=== PATIENT | female | born 1945 | race Two or more races ===

== ENCOUNTER 2020-07-21 06:45 | Day surgery (SDC) | payer OTHER | END 2020-07-21 11:00 | disposition home or self-care (01) | LOC: CIR.AMB 06:45 | PROVIDERS: ATTEND Colon & Rectal Surgery | DX: D12.0 Benign neoplasm of cecum (principal); D12.2 Benign neoplasm of ascending colon; D12.3 Benign neoplasm of transverse colon; Z20.828 Contact with and (suspected) exposure to other viral communicable diseases; K64.8 Other hemorrhoids ==

== ENCOUNTER 2024-08-13 09:36 | Day surgery (SDC) | payer OTHER ==
[2024-08-13] MEDS ORDERED: MIDAZOLAM HCL 2 MG/2 ML VIAL IV ONE (15:00)
[2024-08-13] MEDS ORDERED: ONDANSETRON HCL 2 MG/ML VIAL IV ONE (15:00)
[2024-08-13] MEDS ORDERED: fentaNYL CITRATE 50 MCG/ML AMPUL IV PUSH ONE (15:00)
[2024-08-13] MEDS ORDERED: DIPHENHYDRAMINE HCL 50 MG/ML VIAL 1ML IV ONE (15:00)
== END 2024-08-13 17:15 | disposition home or self-care (01) ==
LOC: AMB-ENDOS 09:36
PROVIDERS: ATTEND Colon & Rectal Surgery
DX: D12.1 Benign neoplasm of appendix (principal); D12.0 Benign neoplasm of cecum; D12.5 Benign neoplasm of sigmoid colon

== ENCOUNTER 2024-09-25 09:30 | Inpatient (IN) | payer OTHER ==
[~2024-09-25] VITALS: Ht 160 cm; Wt 72.6 kg
[2024-09-25 10:41] LABS: HEMATOCRIT 48.8 % (36.0-45.00); HEMOGLOBIN 16.8 g/dL (12.0-15.00); MEAN CELL VOLUME 85.7 fL (80.00-100.00); MEAN CORPUSCULAR HEMOGLOBIN 29.6 pg (27.00-32.0); MEAN CORPUSCULAR HGB CONC 34.5 g/dl (32.0-36.0); PLATELET COUNT 286 K/uL (150-450); RED BLOOD COUNT 5.69 M/uL (4.00-6.00); RED CELL DISTRIBUTION WIDTH 13.9 % (11.5-14.5)
[2024-09-25 10:58] LABS: PH,URINE 5.5 (5.0-8.0); URINE APPEARANCE Clear; URINE BILIRRUBIN Negative (NEGATIVE); URINE BLOOD Trace; URINE COLOR Yellow; URINE GLUCOSE Negative (NEGATIVE); URINE KETONE Negative (NEGATIVE); URINE LEUKOCYTE Small; URINE NITRATE Negative; URINE PROTEIN Negative (NEGATIVE); URINE UROBILINOGEN 0.2 E.U./dl
[2024-09-25 11:02] LABS: URINE BACTERIA 36.7 uL (0.0-1933); URINE EPITHELIAL CELLS 7.2 uL (0.0-38.8); URINE RBC 8.5 uL (0.0-20.8); URINE WBC 36.8 uL (0.0-23.2)
[2024-09-25] MEDS ORDERED: ATACAND32 MG PO (11:07)
[2024-09-25] MEDS ORDERED: AMLODIPINE BESY10 MG (11:07)
[2024-09-25 11:10] LABS: URINE CAST 0.14 uL (0.0-1.40)
[2024-09-25 11:11] VITALS: BP 144/81
[2024-09-25 11:22] LABS: PARTIAL THROMBOPLASTIN TIME 31.1 SECONDS (22.0-34.0); PROTHROMBIN TIME 10.9 SECONDS (9.0-11.5)
[2024-09-25 12:16] LABS: ALBUMIN 3.9 gm/dL (3.4-5.0); BILIRUBIN TOTAL 0.72 mg/dL (0.3-1.2); CALCIUM 9.7 mg/dL (8.5-10.1); CREATININE SERUM 0.82 mg/dL (0.55-1.02); GFR 67.6; GLOBULINA 4.1 G/DL (2.4-3.5); POTASSIUM 4.85 mEq/L (3.5-5.1)
[2024-09-26 13:35] LABS: RH NEGATIVE
[2024-09-29] MEDS ORDERED: CEFTRIAXONE SODIUM 2,000 MG VIAL IV ONE (13:15)
[2024-09-29] MEDS ORDERED: METRONIDAZOLE/SODIUM CHLORIDE 500 MG/100 ML PIGGYBACK IV ONE (13:15)
[2024-09-29] MEDS ORDERED: LIDOCAINE HCL 1%/EPINEPHRINE 20ML VIAL IJ ONE (13:15)
[2024-09-29] MEDS ORDERED: BUPIVACAINE HCL 30 ML VIAL IJ ONE (13:15)
[2024-09-29] MEDS ORDERED: MORPHINE SULFATE 4 MG/ML CARTRIDGE IV PRN (15:15)
[2024-09-29] MEDS ORDERED: RINGERS SOLUTION,LACTATED 1,000 ML IV SCH (15:15)
[2024-09-29] MEDS ORDERED: ENALAPRILAT DIHYDRATE 1.25 MG/ML VIAL IV PRN (15:15)
[2024-09-29] MEDS ORDERED: ONDANSETRON HCL 2 MG/ML VIAL IV PRN (15:15)
[2024-09-29] MEDS ORDERED: OxyCODONE HCL 5 MG TABLET (ROXICODONE) PO PRN (15:15)
[2024-09-29] MEDS ORDERED: SUGAMMADEX SODIUM 200 MG/2 ML VIAL IV ONE (16:30)
[2024-09-29] MEDS ORDERED: MORPHINE SULFATE 4 MG/ML VIAL IV ONE ×2 (16:30→17:00)
[2024-09-29] MEDS ORDERED: POLYETHYLENE GLYCOL 3350 17 GM BLIST.PACK PO SCH (17:00)
[2024-09-29] MEDS ORDERED: SIMETHICONE 125 MG CAPSULE PO SCH (17:00)
[2024-09-29] MEDS ORDERED: ACETAMINOPHEN 500 MG GEL..CAP PO SCH (18:00)
[2024-09-29 18:19] LABS: HEMATOCRIT 46.2 % (36.0-45.00); HEMOGLOBIN 15.5 g/dL (12.0-15.00); MEAN CELL VOLUME 87.9 fL (80.00-100.00); MEAN CORPUSCULAR HEMOGLOBIN 29.4 pg (27.00-32.0); MEAN CORPUSCULAR HGB CONC 33.5 g/dl (32.0-36.0); PLATELET COUNT 286 K/uL (150-450); RED BLOOD COUNT 5.26 M/uL (4.00-6.00); RED CELL DISTRIBUTION WIDTH 13.6 % (11.5-14.5)
[2024-09-29 18:45] LABS: ALBUMIN 3.3 gm/dL (3.4-5.0); CALCIUM 8.3 mg/dL (8.5-10.1); CREATININE SERUM 0.91 mg/dL (0.55-1.02); GFR 59.94; MAGNESIUM 1.9 mg/dL (1.8-2.4); PHOSPHOROUS 2.5 mg/dL (2.5-4.9); POTASSIUM 3.61 mEq/L (3.5-5.1)
[2024-09-29 20:00] VITALS: BP 146/76; O2SAT 93
[2024-09-29] MEDS ORDERED: FAMOTIDINE/PF 20 MG/2 ML VIAL IV SCH (21:00)
[2024-09-30 01:08] VITALS: BP 132/77; O2SAT 97
[2024-09-30 07:00] LABS: HEMATOCRIT 45.9 % (36.0-45.00); HEMOGLOBIN 15.6 g/dL (12.0-15.00); MEAN CELL VOLUME 86.1 fL (80.00-100.00); MEAN CORPUSCULAR HEMOGLOBIN 29.3 pg (27.00-32.0); PLATELET COUNT 294 K/uL (150-450); RED BLOOD COUNT 5.34 M/uL (4.00-6.00); RED CELL DISTRIBUTION WIDTH 13.4 % (11.5-14.5)
[2024-09-30 07:38] LABS: ALBUMIN 3.3 gm/dL (3.4-5.0); CALCIUM 8.4 mg/dL (8.5-10.1); CREATININE SERUM 0.79 mg/dL (0.55-1.02); GFR 70.57; PHOSPHOROUS 3.3 mg/dL (2.5-4.9); POTASSIUM 4.79 mEq/L (3.5-5.1)
[2024-09-30 08:00] VITALS: BP 122/57; O2SAT 95
[2024-09-30] MEDS ORDERED: AMLODIPINE BESYLATE 10 MG TABLET PO SCH (09:00)
[2024-09-30] MEDS ORDERED: CANDESARTAN CILEXETIL 32 MG TABLET PO SCH (09:00)
[2024-09-30] MEDS ORDERED: LACTOBACILLUS ACIDOPHILUS 1 CAP CAP PO SCH (09:00)
[2024-09-30 16:00] VITALS: BP 143/76; O2SAT 94
[2024-09-30] MEDS ORDERED: ENOXAPARIN SODIUM 40 MG/0.4 ML SYRINGE SUBCUTANEO SCH (17:00)
[2024-10-01 00:35] VITALS: BP 126/72; O2SAT 96
[2024-10-01 07:16] LABS: HEMATOCRIT 45.3 % (36.0-45.00); HEMOGLOBIN 15.7 g/dL (12.0-15.00); MEAN CORPUSCULAR HEMOGLOBIN 29.8 pg (27.00-32.0); MEAN CORPUSCULAR HGB CONC 34.7 g/dl (32.0-36.0); PLATELET COUNT 268 K/uL (150-450); RED BLOOD COUNT 5.27 M/uL (4.00-6.00); RED CELL DISTRIBUTION WIDTH 13.5 % (11.5-14.5)
[2024-10-01 08:00] VITALS: BP 160/85; O2SAT 95
[2024-10-01 08:41] LABS: ALBUMIN 3.1 gm/dL (3.4-5.0); CALCIUM 8.7 mg/dL (8.5-10.1); CREATININE SERUM 0.75 mg/dL (0.55-1.02); GFR 74.93; MAGNESIUM 2.2 mg/dL (1.8-2.4); POTASSIUM 4.34 mEq/L (3.5-5.1)
[2024-10-01] MEDS ORDERED: NAPH,MB-DB/K PH,MBDB 1 PKT PACKET PO SCH (09:00)
[2024-10-01 09:32] LABS: PHOSPHOROUS 1.7 mg/dL (2.5-4.9)
[2024-10-01] MEDS ORDERED: POTASSIUM PHOS,M-BASIC-D-BASIC 15 MM in 0.9 % SODIUM CHLORIDE 250 ML IV NR (11:00)
[2024-10-01 16:29] VITALS: BP 143/83; O2SAT 94
[2024-10-01] MEDS ORDERED: DOCUSATE SODIUM 100MG CAP PO NR (18:00)
[2024-10-02 01:08] VITALS: BP 114/67; O2SAT 95
[2024-10-02 07:49] LABS: HEMATOCRIT 46.8 % (36.0-45.00); HEMOGLOBIN 15.7 g/dL (12.0-15.00); MEAN CELL VOLUME 87.6 fL (80.00-100.00); MEAN CORPUSCULAR HEMOGLOBIN 29.3 pg (27.00-32.0); MEAN CORPUSCULAR HGB CONC 33.4 g/dl (32.0-36.0); PLATELET COUNT 298 K/uL (150-450); RED BLOOD COUNT 5.34 M/uL (4.00-6.00); RED CELL DISTRIBUTION WIDTH 13.5 % (11.5-14.5)
[2024-10-02 08:00] VITALS: BP 147/76; O2SAT 92
[2024-10-02 08:43] LABS: CALCIUM 8.9 mg/dL (8.5-10.1); CREATININE SERUM 0.82 mg/dL (0.55-1.02); GFR 67.6; MAGNESIUM 2.1 mg/dL (1.8-2.4); PHOSPHOROUS 2.9 mg/dL (2.5-4.9); POTASSIUM 4.81 mEq/L (3.5-5.1)
[2024-10-02] MEDS ORDERED: POLYETHYLENE GLYCOL 3350 17 GM BLIST.PACK PO SCH (09:00)
[2024-10-02] MEDS ORDERED: DOCUSATE SODIUM 100MG CAP PO NR (13:00)
[2024-10-02] MEDS ORDERED: NAPH,MB-DB/K PH,MBDB 1 PKT PACKET PO NR (13:00)
[2024-10-02] MEDS ORDERED: POLYETHYLENE GLYCOL 3350 17 GM BLIST.PACK PO NR (13:00)
[2024-10-02 16:00] VITALS: BP 145/67; O2SAT 94
[2024-10-02] MEDS ORDERED: 0.9 % SODIUM CHLORIDE 1,000 ML IV SCH (20:45)
[2024-10-03 01:21] VITALS: BP 126/7; O2SAT 93
[2024-10-03] MEDS ORDERED: DIATRIZOATE MEGLUMINE, SODIUM 30 ML BOTTLE PO NR (07:00)
[2024-10-03 08:00] VITALS: BP 139/78; O2SAT 95
[2024-10-03] MEDS ORDERED: PIPERACILLIN/TAZOBACTAM SODIUM 3.375 GM VIAL IV STA (09:44)
[2024-10-03 16:00] VITALS: BP 127/76; O2SAT 93
[2024-10-03] MEDS ORDERED: PIPERACILLIN/TAZOBACTAM SODIUM 3.375 GM VIAL IV SCH (18:00)
[2024-10-04 01:44] VITALS: BP 138/73; O2SAT 98
[2024-10-04 07:57] LABS: ALBUMIN 2.6 gm/dL (3.4-5.0); CALCIUM 8.3 mg/dL (8.5-10.1); CREATININE SERUM 0.98 mg/dL (0.55-1.02); GFR 55.03; MAGNESIUM 2.3 mg/dL (1.8-2.4); PHOSPHOROUS 4.3 mg/dL (2.5-4.9); POTASSIUM 4.79 mEq/L (3.5-5.1)
[2024-10-04 08:16] LABS: HEMATOCRIT 41.1 % (36.0-45.00); HEMOGLOBIN 14.2 g/dL (12.0-15.00); MEAN CELL VOLUME 86.2 fL (80.00-100.00); MEAN CORPUSCULAR HEMOGLOBIN 29.7 pg (27.00-32.0); MEAN CORPUSCULAR HGB CONC 34.5 g/dl (32.0-36.0); PLATELET COUNT 334 K/uL (150-450); RED BLOOD COUNT 4.77 M/uL (4.00-6.00); RED CELL DISTRIBUTION WIDTH 13.9 % (11.5-14.5)
[2024-10-04 09:31] VITALS: BP 123/75; O2SAT 94
[2024-10-04 16:00] VITALS: BP 156/73; O2SAT 95
[2024-10-05 00:35] VITALS: BP 118/67; O2SAT 95
[2024-10-05 07:37] LABS: ALBUMIN 2.6 gm/dL (3.4-5.0); CALCIUM 7.8 mg/dL (8.5-10.1); CREATININE SERUM 0.74 mg/dL (0.55-1.02); GFR 76.1; MAGNESIUM 2.1 mg/dL (1.8-2.4); POTASSIUM 4.1 mEq/L (3.5-5.1)
[2024-10-05 07:46] LABS: HEMATOCRIT 38.9 % (36.0-45.00); MEAN CORPUSCULAR HEMOGLOBIN 29.5 pg (27.00-32.0); MEAN CORPUSCULAR HGB CONC 33.5 g/dl (32.0-36.0); PLATELET COUNT 287 K/uL (150-450); RED BLOOD COUNT 4.43 M/uL (4.00-6.00); RED CELL DISTRIBUTION WIDTH 13.6 % (11.5-14.5)
[2024-10-05 08:00] VITALS: BP 118/72; O2SAT 92
[2024-10-05 08:35] LABS: URINE APPEARANCE Clear; URINE BILIRRUBIN Negative (NEGATIVE); URINE BLOOD Negative; URINE COLOR Yellow; URINE GLUCOSE Negative (NEGATIVE); URINE KETONE Trace (NEGATIVE); URINE LEUKOCYTE Negative; URINE NITRATE Negative; URINE PROTEIN Negative (NEGATIVE)
[2024-10-05 08:39] LABS: URINE BACTERIA 6.1 uL (0.0-1933); URINE EPITHELIAL CELLS 5.8 uL (0.0-38.8); URINE RBC 16.9 uL (0.0-20.8); URINE WBC 5.6 uL (0.0-23.2)
[2024-10-05] MEDS ORDERED: ACETAMINOPHEN 500 MG GEL..CAP PO PRN (09:22)
[2024-10-05] MEDS ORDERED: POTASSIUM PHOS,M-BASIC-D-BASIC 18 MM in 0.9 % SODIUM CHLORIDE 250 ML IV NR (12:00)
[2024-10-05 16:00] VITALS: BP 121/74; O2SAT 93
[2024-10-05 17:15] LABS: FECAL LEUKOCYTES POSITIVE (NEGATIVE)
[2024-10-06 00:38] VITALS: BP 120/68; O2SAT 90
[2024-10-06 08:00] VITALS: BP 125/75; O2SAT 97
[2024-10-06] MEDS ORDERED: DIATRIZOATE MEGLUMINE, SODIUM 30 ML BOTTLE PO STA (09:31)
[2024-10-06] MEDS ORDERED: AMINO ACIDS 4.25 %/DEXTROSE 5% 1,000 ML PERIFERAL SCH (17:00)
[2024-10-06 17:01] LABS: CALCIUM 8.4 mg/dL (8.5-10.1); CHOL HDL RATIO 3.9 (0-5.0); CREATININE SERUM 0.7 mg/dL (0.55-1.02); GFR 81.14; POTASSIUM 4.17 mEq/L (3.5-5.1)
[2024-10-06 17:48] VITALS: BP 147/82; O2SAT 94
[2024-10-07 00:25] VITALS: BP 155/80; O2SAT 95
[2024-10-07 08:55] LABS: HEMOGLOBIN 13.8 g/dL (12.0-15.00); MEAN CELL VOLUME 88.5 fL (80.00-100.00); MEAN CORPUSCULAR HEMOGLOBIN 29.9 pg (27.00-32.0); MEAN CORPUSCULAR HGB CONC 33.7 g/dl (32.0-36.0); PLATELET COUNT 309 K/uL (150-450); RED BLOOD COUNT 4.63 M/uL (4.00-6.00); RED CELL DISTRIBUTION WIDTH 13.8 % (11.5-14.5)
[2024-10-07 10:05] LABS: ALBUMIN 2.8 gm/dL (3.4-5.0); CALCIUM 8.2 mg/dL (8.5-10.1); CREATININE SERUM 0.62 mg/dL (0.55-1.02); GFR 93.34; MAGNESIUM 2.4 mg/dL (1.8-2.4); POTASSIUM 3.91 mEq/L (3.5-5.1)
[2024-10-07 10:13] LABS: PHOSPHOROUS 1.8 mg/dL (2.5-4.9)
[2024-10-07 10:50] VITALS: BP 143/72; O2SAT 95
[2024-10-07 16:00] VITALS: BP 158/85; O2SAT 94
[2024-10-08] VITALS: BP 148/77; O2SAT 96
[2024-10-08 10:36] VITALS: BP 154/79; O2SAT 96
[2024-10-08] MEDS ORDERED: POTASSIUM PHOS,M-BASIC-D-BASIC 15 MM in 0.9 % SODIUM CHLORIDE 250 ML IV NR (12:15)
[2024-10-08 17:25] VITALS: BP 134/81; O2SAT 94
[2024-10-09 01:31] VITALS: BP 142/76; O2SAT 95
[2024-10-09 06:55] LABS: HEMATOCRIT 39.9 % (36.0-45.00); HEMOGLOBIN 13.6 g/dL (12.0-15.00); MEAN CELL VOLUME 87.4 fL (80.00-100.00); MEAN CORPUSCULAR HEMOGLOBIN 29.7 pg (27.00-32.0); PLATELET COUNT 338 K/uL (150-450); RED BLOOD COUNT 4.56 M/uL (4.00-6.00); RED CELL DISTRIBUTION WIDTH 13.2 % (11.5-14.5)
[2024-10-09 07:08] LABS: ALBUMIN 2.8 gm/dL (3.4-5.0); CALCIUM 8.2 mg/dL (8.5-10.1); CREATININE SERUM 0.6 mg/dL (0.55-1.02); GFR 96.94; MAGNESIUM 2.3 mg/dL (1.8-2.4); PHOSPHOROUS 2.1 mg/dL (2.5-4.9); POTASSIUM 3.97 mEq/L (3.5-5.1)
[2024-10-09 10:31] VITALS: BP 126/71; O2SAT 98
[2024-10-09 16:00] VITALS: BP 129/76; O2SAT 95
[2024-10-10] VITALS: BP 133/77; O2SAT 94
[2024-10-10 08:00] VITALS: BP 137/76; O2SAT 94
[2024-10-10 17:39] VITALS: BP 119/71; O2SAT 95
[2024-10-11 00:50] VITALS: BP 129/68; O2SAT 95
[2024-10-11 08:00] VITALS: BP 126/75; O2SAT 95
[2024-10-11 08:07] LABS: HEMATOCRIT 40.5 % (36.0-45.00); HEMOGLOBIN 13.9 g/dL (12.0-15.00); MEAN CELL VOLUME 87.5 fL (80.00-100.00); MEAN CORPUSCULAR HGB CONC 34.3 g/dl (32.0-36.0); PLATELET COUNT 393 K/uL (150-450); RED BLOOD COUNT 4.63 M/uL (4.00-6.00); RED CELL DISTRIBUTION WIDTH 13.7 % (11.5-14.5)
[2024-10-11 08:25] LABS: CALCIUM 8.8 mg/dL (8.5-10.1); CREATININE SERUM 0.72 mg/dL (0.55-1.02); GFR 78.54; PHOSPHOROUS 2.2 mg/dL (2.5-4.9); POTASSIUM 4.08 mEq/L (3.5-5.1)
[2024-10-11] MEDS ORDERED: POTASSIUM PHOS,M-BASIC-D-BASIC 3 MM/ML VIAL IV ONE (12:00)
[2024-10-11 16:13] VITALS: BP 132/74; O2SAT 97
[2024-10-11] MEDS ORDERED: DIATRIZOATE MEGLUMINE, SODIUM 30 ML BOTTLE PO NR (17:00)
[2024-10-12 01:35] VITALS: BP 130/74; O2SAT 95
[2024-10-12 16:29] VITALS: BP 124/70; O2SAT 94
[2024-10-12] MEDS ORDERED: ENOXAPARIN SODIUM 40 MG/0.4 ML SYRINGE SUBCUTANEO SCH (17:00)
[2024-10-13] VITALS: BP 132/68; O2SAT 93
[2024-10-13 07:41] LABS: HEMATOCRIT 39.5 % (36.0-45.00); HEMOGLOBIN 13.2 g/dL (12.0-15.00); MEAN CELL VOLUME 87.6 fL (80.00-100.00); MEAN CORPUSCULAR HEMOGLOBIN 29.2 pg (27.00-32.0); MEAN CORPUSCULAR HGB CONC 33.4 g/dl (32.0-36.0); PLATELET COUNT 404 K/uL (150-450); RED BLOOD COUNT 4.51 M/uL (4.00-6.00); RED CELL DISTRIBUTION WIDTH 13.7 % (11.5-14.5)
[2024-10-13 08:13] LABS: INR 1.05; PROTHROMBIN TIME 11.4 SECONDS (9.0-11.5)
[2024-10-13 08:15] LABS: CALCIUM 8.8 mg/dL (8.5-10.1); CREATININE SERUM 0.65 mg/dL (0.55-1.02); GFR 88.38; MAGNESIUM 2.2 mg/dL (1.8-2.4); PHOSPHOROUS 2.4 mg/dL (2.5-4.9); POTASSIUM 3.92 mEq/L (3.5-5.1)
[2024-10-13 08:20] VITALS: BP 136/66; O2SAT 94
[2024-10-13 08:33] LABS: ALBUMIN 2.9 gm/dL (3.4-5.0); BILIRUBIN TOTAL 0.62 mg/dL (0.3-1.2); BILIRUBIN,CONJUGATED 0.15 mg/dL (0.0-0.2); BILIRUBIN,UNCONJUGATED 0.47 mg/dL (0.0-0.6); CALCIUM 8.8 mg/dL (8.5-10.1); CHOL HDL RATIO 3.8 (0-5.0); CREATININE SERUM 0.64 mg/dL (0.55-1.02); GFR 89.98; GLOBULINA 3.6 G/DL (2.4-3.5); POTASSIUM 4.15 mEq/L (3.5-5.1); TOTAL PROTEIN 6.5 gm/dL (6.4-8.2)
[2024-10-13 09:17] LABS: UREA CLEARANCE 20.8 ML/MIN
[2024-10-13] MEDS ORDERED: POTASSIUM PHOS,M-BASIC-D-BASIC 15 MM in 0.9 % SODIUM CHLORIDE 250 ML IV NR ×2 (13:00→17:00)
[2024-10-13 17:06] VITALS: BP 122/67; O2SAT 95
[2024-10-14] VITALS: BP 97/54; O2SAT 90
[2024-10-14 08:00] VITALS: BP 124/75; O2SAT 97
[2024-10-14 17:30] VITALS: BP 117/65; O2SAT 93
[2024-10-15 00:28] VITALS: BP 118/65; O2SAT 93
[2024-10-15 06:19] LABS: HEMATOCRIT 38.3 % (36.0-45.00); MEAN CELL VOLUME 86.7 fL (80.00-100.00); MEAN CORPUSCULAR HEMOGLOBIN 29.4 pg (27.00-32.0); MEAN CORPUSCULAR HGB CONC 33.9 g/dl (32.0-36.0); PLATELET COUNT 369 K/uL (150-450); RED BLOOD COUNT 4.41 M/uL (4.00-6.00); RED CELL DISTRIBUTION WIDTH 13.8 % (11.5-14.5)
[2024-10-15 06:52] LABS: CALCIUM 8.1 mg/dL (8.5-10.1); CREATININE SERUM 0.59 mg/dL (0.55-1.02); GFR 98.83; MAGNESIUM 1.8 mg/dL (1.8-2.4); PHOSPHOROUS 2.5 mg/dL (2.5-4.9); POTASSIUM 3.83 mEq/L (3.5-5.1)
[2024-10-15 08:02] VITALS: BP 129/71; O2SAT 95
[2024-10-15 17:00] VITALS: BP 123/72; O2SAT 98
[2024-10-16 00:59] VITALS: BP 107/60; O2SAT 98
[2024-10-16 11:26] VITALS: BP 117/71; O2SAT 95
[2024-10-16] MEDS ORDERED: OxyCODONE HCL 5 MG TABLET (ROXICODONE) PO PRN (12:17)
[2024-10-16] MEDS ORDERED: MAGNESIUM SULFATE IN WATER 2 GM/50 ML PIGGYBAG IV NR (14:00)
[2024-10-16 16:00] VITALS: BP 136/80; O2SAT 95
[2024-10-16] MEDS ORDERED: POTASSIUM PHOS,M-BASIC-D-BASIC 15 MM in 0.9 % SODIUM CHLORIDE 250 ML IV ONE (17:00)
[2024-10-16] MEDS ORDERED: POLYETHYLENE GLYCOL 3350 17 GM BLIST.PACK PO SCH (21:00)
[2024-10-17 00:33] VITALS: BP 100/63; O2SAT 97
[2024-10-17 08:00] VITALS: BP 129/78; O2SAT 95
[2024-10-17 08:40] LABS: HEMATOCRIT 39.4 % (36.0-45.00); HEMOGLOBIN 13.6 g/dL (12.0-15.00); MEAN CORPUSCULAR HEMOGLOBIN 29.7 pg (27.00-32.0); MEAN CORPUSCULAR HGB CONC 34.5 g/dl (32.0-36.0); PLATELET COUNT 359 K/uL (150-450); RED BLOOD COUNT 4.58 M/uL (4.00-6.00); RED CELL DISTRIBUTION WIDTH 13.9 % (11.5-14.5)
[2024-10-17 09:02] LABS: ALBUMIN 2.8 gm/dL (3.4-5.0); CALCIUM 8.6 mg/dL (8.5-10.1); CREATININE SERUM 0.58 mg/dL (0.55-1.02); GFR 100.8; MAGNESIUM 2.1 mg/dL (1.8-2.4); PHOSPHOROUS 2.3 mg/dL (2.5-4.9); POTASSIUM 3.87 mEq/L (3.5-5.1)
[2024-10-17] MEDS ORDERED: HYOSCYAMINE SULFATE 0.125 MG TAB.SUBL SL STA (13:55)
[2024-10-17] MEDS ORDERED: POTASSIUM PHOS,M-BASIC-D-BASIC 15 MM in 0.9 % SODIUM CHLORIDE 250 ML IV NR (14:00)
[2024-10-17] MEDS ORDERED: HYOSCYAMINE SULFATE 0.125 MG TAB.SUBL SL PRN (14:00)
[2024-10-17 15:00] VITALS: BP 120/70; O2SAT 94
[2024-10-18 00:38] VITALS: BP 117/71; O2SAT 94
[2024-10-18 08:55] VITALS: BP 113/64; O2SAT 95
[2024-10-18 16:00] VITALS: BP 128/78; O2SAT 94
[2024-10-18] MEDS ORDERED: POTASSIUM PHOS,M-BASIC-D-BASIC 15 MM in 0.9 % SODIUM CHLORIDE 250 ML IV ONE (17:30)
[2024-10-18] MEDS ORDERED: POTASSIUM PHOS,M-BASIC-D-BASIC 45mM/15ml VIAL IV NR (19:54)
[2024-10-19 00:11] VITALS: BP 102/65; O2SAT 95
[2024-10-19 07:33] LABS: HEMATOCRIT 39.9 % (36.0-45.00); HEMOGLOBIN 13.4 g/dL (12.0-15.00); MEAN CELL VOLUME 88.1 fL (80.00-100.00); MEAN CORPUSCULAR HEMOGLOBIN 29.5 pg (27.00-32.0); MEAN CORPUSCULAR HGB CONC 33.4 g/dl (32.0-36.0); PLATELET COUNT 324 K/uL (150-450); RED BLOOD COUNT 4.53 M/uL (4.00-6.00); RED CELL DISTRIBUTION WIDTH 13.7 % (11.5-14.5)
[2024-10-19 07:42] LABS: CALCIUM 8.5 mg/dL (8.5-10.1); CREATININE SERUM 0.62 mg/dL (0.55-1.02); GFR 93.34; MAGNESIUM 1.8 mg/dL (1.8-2.4); PHOSPHOROUS 3.4 mg/dL (2.5-4.9); POTASSIUM 4.37 mEq/L (3.5-5.1)
[2024-10-19 08:50] VITALS: BP 115/73; O2SAT 95
[2024-10-19 16:04] VITALS: BP 132/74; O2SAT 96
[2024-10-20] MEDS ORDERED: MAGNESIUM SULFATE 50% 1,000 MG/2 ML VIAL IV ONE (07:30)
[2024-10-20 07:40] LABS: HEMATOCRIT 38.2 % (36.0-45.00); HEMOGLOBIN 12.9 g/dL (12.0-15.00); MEAN CELL VOLUME 86.8 fL (80.00-100.00); MEAN CORPUSCULAR HEMOGLOBIN 29.4 pg (27.00-32.0); MEAN CORPUSCULAR HGB CONC 33.9 g/dl (32.0-36.0); PLATELET COUNT 312 K/uL (150-450); RED CELL DISTRIBUTION WIDTH 13.6 % (11.5-14.5)
[2024-10-20 08:00] VITALS: BP 128/73; O2SAT 98
[2024-10-20 08:08] LABS: INR 1.07; PARTIAL THROMBOPLASTIN TIME 29.9 SECONDS (22.0-34.0); PROTHROMBIN TIME 11.6 SECONDS (9.0-11.5)
[2024-10-20 08:25] LABS: ALBUMIN 2.9 gm/dL (3.4-5.0); BILIRUBIN TOTAL 0.45 mg/dL (0.3-1.2); BILIRUBIN,CONJUGATED 0.12 mg/dL (0.0-0.2); BILIRUBIN,UNCONJUGATED 0.33 mg/dL (0.0-0.6); CALCIUM 8.4 mg/dL (8.5-10.1); CHOL HDL RATIO 4.6 (0-5.0); CREATININE SERUM 0.54 mg/dL (0.55-1.02); GFR 109.47; GLOBULINA 3.2 G/DL (2.4-3.5); PHOSPHOROUS 2.3 mg/dL (2.5-4.9); POTASSIUM 4.08 mEq/L (3.5-5.1); TOTAL PROTEIN 6.1 gm/dL (6.4-8.2)
[2024-10-20] MEDS ORDERED: POTASSIUM PHOS,M-BASIC-D-BASIC 15 MM in 0.9 % SODIUM CHLORIDE 250 ML IV NR (10:00)
[2024-10-20 16:00] VITALS: BP 121/73; O2SAT 97
[2024-10-20] MEDS ORDERED: FAMOtidine 20 MG TABLET PO SCH (17:00)
[2024-10-20 20:00] VITALS: BP 107/59
[2024-10-22 01:02] VITALS: BP 98/61; O2SAT 97
[2024-10-22 08:00] VITALS: BP 114/72; O2SAT 95
[2024-10-22] MEDS ORDERED: POTASSIUM PHOS,M-BASIC-D-BASIC 15 MM in 0.9 % SODIUM CHLORIDE 250 ML IV NR (09:30)
[2024-10-22 16:00] VITALS: BP 120/78; O2SAT 95
[2024-10-23 01:21] VITALS: BP 102/62; O2SAT 96
[2024-10-23 08:00] VITALS: BP 123/76; O2SAT 96
[2024-10-23 08:13] LABS: ALBUMIN 3.2 gm/dL (3.4-5.0); CALCIUM 9.3 mg/dL (8.5-10.1); CREATININE SERUM 0.69 mg/dL (0.55-1.02); GFR 82.5; POTASSIUM 4.26 mEq/L (3.5-5.1)
[2024-10-23 11:13] LABS: HEMATOCRIT 43.4 % (36.0-45.00); HEMOGLOBIN 14.5 g/dL (12.0-15.00); MEAN CELL VOLUME 87.6 fL (80.00-100.00); MEAN CORPUSCULAR HEMOGLOBIN 29.2 pg (27.00-32.0); MEAN CORPUSCULAR HGB CONC 33.4 g/dl (32.0-36.0); PLATELET COUNT 276 K/uL (150-450); RED BLOOD COUNT 4.96 M/uL (4.00-6.00); RED CELL DISTRIBUTION WIDTH 14.1 % (11.5-14.5)
[2024-10-23 16:37] VITALS: BP 113/68; O2SAT 95
[2024-10-24] VITALS: BP 95/58; O2SAT 95
[2024-10-24 08:00] VITALS: BP 137/76; O2SAT 95
[2024-10-24] MEDS ORDERED: DEXTROSE 10 % IN WATER 1,000 ML IV SCH (16:45)
[2024-10-24 17:06] VITALS: BP 132/78; O2SAT 95
[2024-10-25 00:46] VITALS: BP 114/72; O2SAT 98
[2024-10-25 08:00] VITALS: BP 124/81; O2SAT 96
== END 2024-10-25 17:55 | disposition home or self-care (01) | DRG 330 ==
LOC: SURH 09-29 05:57 → O/R 09-29 05:57 → SURH 09-29 09:30
PROVIDERS: Internal Medicine; Internal Medicine Infectious Disease; ADMIT Colon & Rectal Surgery; ATTEND Colon & Rectal Surgery
PROC: 0DTK4ZZ Resection of Ascending Colon, Percutaneous Endoscopic Approach (ICD-10-PCS; 2024-09-29)
PROC: 07BB4ZZ Excision of Mesenteric Lymphatic, Percutaneous Endoscopic Approach (ICD-10-PCS; 2024-09-29)
PROC: 0WQF4ZZ Repair Abdominal Wall, Percutaneous Endoscopic Approach (ICD-10-PCS; 2024-09-29)
PROC: 0DBB4ZZ Excision of Ileum, Percutaneous Endoscopic Approach (ICD-10-PCS; principal; 2024-09-29 11:00)
PROC: BW21ZZZ Computerized Tomography (CT Scan) of Abdomen and Pelvis (ICD-10-PCS; 2024-10-03)
PROC: BW21ZZZ Computerized Tomography (CT Scan) of Abdomen and Pelvis (ICD-10-PCS; 2024-10-06)
PROC: 02HV33Z Insertion of Infusion Device into Superior Vena Cava, Percutaneous Approach (ICD-10-PCS; 2024-10-14)
DX: K63.5 Polyp of colon (principal); K56.690 Other partial intestinal obstruction; K91.89 Other postprocedural complications and disorders of digestive system; R59.0 Localized enlarged lymph nodes; K43.9 Ventral hernia without obstruction or gangrene; E83.39 Other disorders of phosphorus metabolism; I10 Essential (primary) hypertension; L53.8 Other specified erythematous conditions; R73.03 Prediabetes; R14.0 Abdominal distension (gaseous)